=== PATIENT | male | born 1960 | race Asian ===

== ENCOUNTER 2021-11-19 16:35 | Emergency (ER) | payer SELFPAY ==
[2021-11-19] MEDS ORDERED: DIPHTH,PERTUSS(ACELL),TET 0.5 ML DISP.SYRIN IM ONE ×2 (16:39→17:12)
[2021-11-19] MEDS ORDERED: CLINDAMYCIN HCL 150 MG CAPSULE (FP) PO ONE (16:47)
[2021-11-19] MEDS ORDERED: CIPROFLOXACIN 500 MG TABLET (RESTRICTED TO ID) PO ONE (16:47)
[2021-11-19 17:00] VITALS: BP 181/93; PULSE 87; RESP 20; TEMP 97.8; BMI 24.2
[2021-11-19] MEDS ORDERED: CLINDAMYCIN HCL 150 MG CAPSULE (FP) ONE ×2 (17:11→17:14)
[2021-11-19] MEDS ORDERED: CIPROFLOXACIN 250 MG TABLET (RESTRICTED TO ID) PO ONE (17:12)
== END 2021-11-19 18:26 | disposition home or self-care (01) ==
LOC: FER 16:35
PROC: 3E0234Z Introduction of Serum, Toxoid and Vaccine into Muscle, Percutaneous Approach (ICD-10-PCS; principal; 2021-11-19)
DX: S91.331A Puncture wound without foreign body, right foot, initial encounter (principal); W45.0XXA Nail entering through skin, initial encounter
CPT/HCPCS: 73630-TC-RT-FY; 90715; 99284-25

== ENCOUNTER 2021-11-20 14:25 | Emergency (ER) | payer SELFPAY ==
[2021-11-20 15:16] VITALS: BP 135/95; PULSE 92; RESP 16; TEMP 98.4; BMI 24.3
== END 2021-11-20 15:20 | disposition home or self-care (01) ==
LOC: FER 14:25
DX: Z48.00 Encounter for change or removal of nonsurgical wound dressing (principal)
CPT/HCPCS: 99281-25